=== PATIENT | female | born 1955 | race Caucasian/White ===

== ENCOUNTER → 2024-10-26 | Outpatient (REF) | payer MEDICARE ==
[~2024-10-26] MED LIST: CLINDAMYCIN HC150 MG PO; PROBIOTIC & AC1 EACH PO; TYLENOL325 MG PO; ULTRAM 50MG50 MG PO; VALSARTAN-HCTZ1 EACH PO
== END ==
LOC: MRI 07:47
PROVIDERS: ATTEND Podiatrist Foot & Ankle Surgery
DX: M71.572 Other bursitis, not elsewhere classified, left ankle and foot (principal); M67.472 Ganglion, left ankle and foot

== ENCOUNTER → 2025-02-04 | Outpatient (REF) | payer MEDICARE | LOC: MRI 08:56 | PROVIDERS: ATTEND Family Medicine | DX: S01.01XA Laceration without foreign body of scalp, initial encounter (principal); R51.9 Headache, unspecified; R42 Dizziness and giddiness | CPT/HCPCS: 70551 ==